=== PATIENT | male | born 1940 | race Caucasian/White ===

== ENCOUNTER 2019-07-05 03:47 | Observation (INO) | payer MEDICARE, OTHER ==
[2019-07-05] MEDS ORDERED: Sodium Chloride 0.9% 1,000 ML IV ONE (04:10)
[2019-07-05] MEDS ORDERED: Sodium Chloride 0.9% 10 ML Syringe FLUSH PRN (04:10)
--- NOTE | 2019-07-05 04:39 | EDM.PDOC ---
ED HPI GENERAL MEDICAL PROBLEM - General Chief Complaint: General Stated Complaint: weakness Time Seen by Provider: 07/05/19 04:20 Source of Information: Reports: Patient, Family ([id number]) History Limitations: Reports: No Limitations - History of Present Illness INITIAL COMMENTS - FREE TEXT/NARRATIVE: Patient presents from assisted living with general weakness. He says he just doesn't feel right. He denies any pain or injury. He denies focal weakness. He eats 3 full meals daily and drinks several cups of water daily. He takes medication for BP, BPH and constipation. No CHF or diabetes. At 2300 last night he was lying in bed and couldn't get up so he called the ambulance. They helped him out of bed but he didn't want to come in then. Patient has bone cancer for at least 15 years now[address] He saw Dr. Agosto 4 days ago and discussed the cancer might be worsening. - Related Data Allergies Allergy/AdvReac Type Severity Reaction Status Date / Time No Known Drug Allergies Allergy Cannot Verified 07/05/19 03:48 Remember ED ROS GENERAL - Review of Systems Review Of Systems: See Below Constitutional: Reports: Malaise (vague), Weakness. Denies: Fever (He isn't aware of any except that the EMS crew last night read 101.5 on him when they were out.), Chills, Decreased Appetite HEENT: Denies: Ear Pain, Throat Pain, Vision Change Respiratory: Denies: Shortness of Breath, Cough Cardiovascular: Denies: Chest Pain, Edema, Lightheadedness, Syncope Endocrine: Reports: Fatigue, Other (weakness) GI/Abdominal: Reports: Constipation (chronic, takes Miralax qod which works okay ). Denies: Abdominal Pain, Diarrhea, Nausea, Vomiting : Denies: Dysuria, Flank Pain Musculoskeletal: Reports: No Symptoms Skin: Reports: No Symptoms Neurological: Reports: Difficulty Walking (due to weakness), Weakness. Denies: Confusion, Dizziness, Seizure, Syncope Psychiatric: Denies: Agitation, Anxiety, Confusion Hematologic/Lymphatic: Reports: Anemia ED EXAM, GENERAL - Physical Exam Exam: See Below Exam Limited By: No Limitations General Appearance: Alert, WD/WN, No Apparent Distress Eye Exam: Bilateral Eye: EOMI, Normal Inspection, PERRL Ears: Normal External Exam, Hearing Grossly Normal Nose: Normal Inspection, No Blood Throat/Mouth: Normal Inspection, Normal Lips, Normal Voice, No Airway Compromise Head: Atraumatic, Normocephalic Neck: Normal Inspection, Supple, Non-Tender, Full Range of Motion Respiratory/Chest: No Respiratory Distress, Lungs Clear, Normal Breath Sounds, No Accessory Muscle Use Cardiovascular: Normal Peripheral Pulses, Regular Rate, Rhythm, No Edema, No Gallop, No JVD, No Murmur Peripheral Pulses: 2+: Carotid (L), Carotid (R), Radial (L), Radial (R), Posterior Tibial (L), Posterior Tibial (R) GI/Abdominal: Normal Bowel Sounds, Soft, Non-Tender, No Organomegaly, No Distention Back Exam: Normal Inspection, Full Range of Motion. No: CVA Tenderness (L), CVA Tenderness (R) Extremities: Normal Inspection, Non-Tender, No Pedal Edema Neurological: Alert, Oriented, Normal Cognition, No Motor/Sensory Deficits Psychiatric: Normal Mood, Flat Affect Skin Exam: Warm, Dry, Intact, Normal Color, No Rash Course - Vital Signs Last Recorded V/S: Last Vital Signs Temp 97.6 F 07/05/19 03:49 Pulse 85 07/05/19 03:49 Resp 20 07/05/19 03:49 BP 154/54 H 07/05/19 04:11 Pulse Ox 96 07/05/19 03:49 - Orders/Labs/Meds Orders: Active Orders 24 hr Category Date Time Status Peripheral IV Care [RC] . DIRECTED Care 07/05/19 04:10 Active CULTURE URINE [RM] Stat Lab 07/05/19 05:21 Ordered Sodium Chloride 0.9% [Saline Flush] Med 07/05/19 04:10 Active 10 ml FLUSH Q8HR PRN Peripheral IV Insertion Adult [OM.PC] Routine Oth 07/05/19 04:10 Ordered Medication Orders Sodium Chloride (Saline Flush) 10 ml FLUSH Q8HR PRN PRN Reason: keep vein open Last Admin: 07/05/19 04:19 Dose: 10 ml Labs: Laboratory Tests 07/05/19 07/05/19 07/05/19 Range/Units 04:06 04:06 04:06 WBC 2.79 L (5.00-10.00) 10^3/uL RBC 2.44 L (4.50-6.00) 10^6/uL Hgb 8.2 L (13.0-17.0) g/dL Hct 24.6 L (40.0-52.0) % MCV 100.8 H (82.0-92.0) fL MCH 33.6 H (27.0-31.0) pg MCHC 33.3 (32.0-36.0) g/dL RDW 15.7 H (11.5-14.5) % Plt Count 132 L (150-400) 10^3/uL MPV 9.9 (7.4-10.4) fL Immature Gran % (Auto) 1.8 (0.0-5.0) % Neut % (Auto) 54.4 (50.0-70.0) % Lymph % (Auto) 31.9 (20.0-40.0) % [place] % (Auto) 9.0 H (2.0-8.0) % Eos % (Auto) 2.5 (1.0-3.0) % Baso % (Auto) 0.4 (0.0-1.0) % Immature Gran # (Auto) 0.05 (0.00-0.50) 10^3/uL Neut # (Auto) 1.52 L (2.50-7.00) 10^3/uL Lymph # (Auto) 0.89 L (1.00-4.00) 10^3/uL [place] # (Auto) 0.25 (0.10-0.80) 10^3/uL Eos # (Auto) 0.07 L (0.10-0.30) 10^3/uL Baso # (Auto) 0.01 (0.00-0.10) 10^3/uL Sodium 140 (136-145) mmol/L Potassium 3.7 (3.3-5.3) mmol/L Chloride 104 (98-115) mmol/L Carbon Dioxide 24.4 (21.0-32.0) mmol/L Anion Gap 15.3 H (5-15) mmol/L BUN 22 (6-25) mg/dL Creatinine 1.92 H (0.51-1.17) mg/dL Est Cr Clr Drug Dosing 28.15 mL/min Estimated GFR (MDRD) 34 mL/min Glucose 107 H (75 - 99) mg/dL Lactic Acid 0.8 (0.4-2.0) mmol/L Calcium 8.5 L (8.7-10.3) mg/dL Total Bilirubin 0.4 (0.2-1.0) mg/dL AST 22 (15-37) U/L ALT 15 (12-78) U/L Alkaline Phosphatase 56 (46-116) IU/L Total Protein 9.0 H (6.4-8.2) g/dL Albumin 2.60 L (3.00-4.80) g/dL TSH, Ultra Sensitive (0.340-4.820) uIU/mL Specimen Type Urine Color (YELLOW) Urine Appearance (CLEAR) Urine pH (5.0-9.0) Ur Specific [place] (1.005-1.030) Urine Protein (NEGATIVE) mg/dL Urine Glucose (UA) (NEGATIVE) mg/dL Urine Ketones (NEGATIVE) mg/dL Urine Occult Blood (NEGATIVE) Urine Nitrite (NEGATIVE) Urine Bilirubin (NEGATIVE) Urine Urobilinogen (0.2-1.0) E.U./dL Ur Leukocyte Esterase (NEGATIVE) Urine RBC (0-5) /HPF Urine WBC (0-5) /HPF Ur Epithelial Cells /LPF Urine Bacteria (NONE TO FEW) /HPF Hyaline Casts (NEGATIVE) /LPF 07/05/19 07/05/19 Range/Units 04:06 04:20 WBC (5.00-10.00) 10^3/uL RBC (4.50-6.00) 10^6/uL Hgb (13.0-17.0) g/dL Hct (40.0-52.0) % MCV (82.0-92.0) fL MCH (27.0-31.0) pg MCHC (32.0-36.0) g/dL RDW (11.5-14.5) % Plt Count (150-400) 10^3/uL MPV (7.4-10.4) fL Immature Gran % (Auto) (0.0-5.0) % Neut % (Auto) (50.0-70.0) % Lymph % (Auto) (20.0-40.0) % [place] % (Auto) (2.0-8.0) % Eos % (Auto) (1.0-3.0) % Baso % (Auto) (0.0-1.0) % Immature Gran # (Auto) (0.00-0.50) 10^3/uL Neut # (Auto) (2.50-7.00) 10^3/uL Lymph # (Auto) (1.00-4.00) 10^3/uL [place] # (Auto) (0.10-0.80) 10^3/uL Eos # (Auto) (0.10-0.30) 10^3/uL Baso # (Auto) (0.00-0.10) 10^3/uL Sodium (136-145) mmol/L Potassium (3.3-5.3) mmol/L Chloride (98-115) mmol/L Carbon Dioxide (21.0-32.0) mmol/L Anion Gap (5-15) mmol/L BUN (6-25) mg/dL Creatinine (0.51-1.17) mg/dL Est Cr Clr Drug Dosing mL/min Estimated GFR (MDRD) mL/min Glucose (75 - 99) mg/dL Lactic Acid (0.4-2.0) mmol/L Calcium (8.7-10.3) mg/dL Total Bilirubin (0.2-1.0) mg/dL AST (15-37) U/L ALT (12-78) U/L Alkaline Phosphatase (46-116) IU/L Total Protein (6.4-8.2) g/dL Albumin (3.00-4.80) g/dL TSH, Ultra Sensitive 15.610 H (0.340-4.820) uIU/mL Specimen Type Urinvoid Urine Color Yellow (YELLOW) Urine Appearance Slightly cloudy H (CLEAR) Urine pH 7.0 (5.0-9.0) Ur Specific [place] 1.020 (1.005-1.030) Urine Protein 100 H (NEGATIVE) mg/dL Urine Glucose (UA) Negative (NEGATIVE) mg/dL Urine Ketones Negative (NEGATIVE) mg/dL Urine Occult Blood Negative (NEGATIVE) Urine Nitrite Negative (NEGATIVE) Urine Bilirubin Negative (NEGATIVE) Urine Urobilinogen 0.2 (0.2-1.0) E.U./dL Ur Leukocyte Esterase Small H (NEGATIVE) Urine RBC 0-5 (0-5) /HPF Urine WBC >100 H (0-5) /HPF Ur Epithelial Cells Few /LPF Urine Bacteria Few (NONE TO FEW) /HPF Hyaline Casts Few H (NEGATIVE) /LPF Meds: Medications Generic Name Dose Route Start Last Admin Trade Name Freq PRN Reason Stop Dose Admin Sodium Chloride 10 ml 07/05/19 04:10 07/05/19 04:19 Saline Flush FLUSH 10 ml Q8HR PRN Administration keep vein open Discontinued Medications Generic Name Dose Route Start Last Admin Trade Name Freq PRN Reason Stop Dose Admin Sodium Chloride 1,000 mls @ 999 mls/hr 07/05/19 04:10 07/05/19 04:19 Normal Saline IV 07/05/19 05:10 999 mls/hr .BOLUS ONE Administration - Re-Assessments/Exams Free Text/Narrative Re-Assessment/Exam: 07/05/19 06:21 UA shows mild UTI. WBC is 2.8, Hg 8.2 which are likely normal for patient with his bone cancer; he says he runs low blood counts. TSH is 15.6; patient isn't aware of any thyroid disease before and he has never been on thyroid medication. The kidney function indicates renal failure but not sure if acute or chronic; patient not aware of any kidney disease. I discussed findings with patient and then discussed case with Billy White who accepted for admission to observation. Patient given a liter of NS and Macrobid 100 mg po in ER. He is stable on admission. Departure - Departure Time of Disposition: 06:21 Disposition: Refer to Observation Condition: Fair Clinical Impression: General weakness Hypothyroid Qualifiers: Hypothyroidism type: unspecified Qualified Code(s): E03.9 - Hypothyroidism, unspecified UTI (urinary tract infection) Qualifiers: Urinary tract infection type: acute cystitis Hematuria presence: without hematuria Qualified Code(s): N30.00 - Acute cystitis without hematuria Bone cancer Qualifiers: Malignant neoplasm of bone location: unspecified location Qualified Code(s): C41.9 - Malignant neoplasm of bone and articular cartilage, unspecified Renal failure Qualifiers: Renal failure chronicity: unspecified chronicity Qualified Code(s): N19 - Unspecified kidney failure Anemia Qualifiers: Anemia type: unspecified type Qualified Code(s): D64.9 - Anemia, unspecified Fatigue Qualifiers: Encounter type: initial encounter - Discharge Information Forms: ED Department Discharge - My Orders Last 24 Hours: My Active Orders 07/05/19 04:10 Peripheral IV Care [RC] . DIRECTED Sodium Chloride 0.9% [Saline Flush] 10 ml FLUSH Q8HR PRN Peripheral IV Insertion Adult [OM.PC] Routine 07/05/19 05:21 CULTURE URINE [RM] Stat - Assessment/Plan Last 24 Hours: My Active Orders 07/05/19 04:10 Peripheral IV Care [RC] . DIRECTED Sodium Chloride 0.9% [Saline Flush] 10 ml FLUSH Q8HR PRN Peripheral IV Insertion Adult [OM.PC] Routine 07/05/19 05:21 CULTURE URINE [RM] Stat
[2019-07-05 04:53] LABS: ANION GAP 15.3 mmol/L (5-15)
[2019-07-05] MEDS ORDERED: Nitrofurantoin Monohydrate/Macrocrystalline 100 MG Cap PO ONE (06:14)
[2019-07-05] MEDS ORDERED: Acetaminophen 500 MG Tab PO PRN (11:12)
--- NOTE | 2019-07-05 11:29 | PCM.HP.2 ---
H&P History of Present Illness - General Date of Service: 07/05/19 Admit Problem/Dx: Admission Diagnosis/Problem Admission Diagnosis/Problem UTI (urinary tract infection) due to urinary indwelling catheter Source of Information: Patient, Old Records, Provider, RN History Limitations: Reports: No Limitations - Related Data Allergies/Adverse Reactions: Allergies Allergy/AdvReac Type Severity Reaction Status Date / Time No Known Drug Allergies Allergy Cannot Verified 07/05/19 03:48 Remember Home Medications: Home Meds Acetaminophen [Acetaminophen Extra Strength] 1,000 mg PO Q6H PRN 07/05/19 [ History] Acyclovir [Zovirax] 400 mg PO BID 07/05/19 [History] Ascorbate Calcium [Vitamin C] 500 mg PO DAILY 07/05/19 [History] Calcium Carbonate/Vitamin D3 [Caltrate-600 with Vit D Tab] 1 each PO DAILY 07/05 [History] Ferrous Sulfate [Feosol] 325 mg PO DAILY 07/05/19 [History] Finasteride [Proscar] 5 mg PO DAILY 07/05/19 [History] Flaxseed Oil [Flaxseed] 1,000 mg PO DAILY 07/05/19 [History] Fluticasone Propionate [Flonase Allergy Relief] 1 spray NS DAILY 07/05/19 [ History] Magnesium Oxide [Magnesium] 500 mg PO DAILY 07/05/19 [History] Meclizine [Antivert] 25 mg PO TID PRN 07/05/19 [History] Multivitamin with Minerals [Multiple Vitamin] 1 tab PO DAILY 07/05/19 [History] Omeprazole 20 mg PO 0800 07/05/19 [History] Plant Stanol Maggie [Cholest Off] 450 mg PO DAILY 07/05/19 [History] Sulfamethoxazole/Trimethoprim [Bactrim 400-80 MG] 2 each PO ASDIRECTED 07/05/19 [History] Tamsulosin HCl [Flomax] 0.8 mg PO BEDTIME 07/05/19 [History] Vitamin B Complex [B Complex] 1 each PO DAILY 07/05/19 [History] amLODIPine [Norvasc] 5 mg PO 0800 07/05/19 [History] Past Medical History HEENT History: Reports: Hard of Hearing, Impaired Vision Cardiovascular History: Reports: Hypertension Respiratory History: Reports: None Gastrointestinal History: Reports: GERD Genitourinary History: Reports: BPH Neurological History: Reports: Brain Injury, Concussion Psychiatric History: Reports: None Endocrine/Metabolic History: Reports: Obesity/BMI 30+ Hematologic History: Reports: None Immunologic History: Reports: None Oncologic (Cancer) History: Reports: Bone Dermatologic History: Reports: None - Infectious Disease History Infectious Disease History: Reports: None - Past Surgical History Cardiovascular Surgical History: Reports: None Respiratory Surgical History: Reports: None GI Surgical History: Reports: None Musculoskeletal Surgical History: Reports: Knee Replacement Dermatological Surgical History: Reports: None Social & Family History - Family History Family Medical History: Noncontributory - Tobacco Use Smoking Status *Q: Never Smoker - Caffeine Use Caffeine Use: Reports: Soda - Recreational Drug Use Recreational Drug Use: No H&P Review of Systems - Review of Systems: Review Of Systems: See Below General: Reports: Malaise. Denies: Fever, Chills, Decreased Appetite HEENT: Reports: No Symptoms Pulmonary: Reports: No Symptoms Cardiovascular: Reports: No Symptoms Gastrointestinal: Denies: Abdominal Pain, Constipation, Diarrhea Genitourinary: Reports: Frequency. Denies: Dysuria, Burning, Pain, Urgency, Retention Musculoskeletal: Reports: No Symptoms Skin: Reports: Pallor Psychiatric: Reports: Mood Lability. Denies: Confusion, Agitation Neurological: Reports: Difficulty Walking (uses walker). Denies: Confusion, Dizziness, Headache, Numbness Hematologic/Lymphatic: Reports: Anemia Immunologic: Reports: No Symptoms Exam - Exam Exam: See Below - Vital Signs Vital Signs: Last Vital Signs Temp 97.6 F 07/05/19 06:09 Pulse 88 07/05/19 06:09 Resp 20 07/05/19 06:09 BP 127/60 07/05/19 06:09 Pulse Ox 96 07/05/19 06:09 Weight: 229 lb 7 oz - Exam Quality Assessment: No: Supplemental Oxygen, DVT Prophylaxis General: Alert, Oriented, Cooperative. No: Mild Distress HEENT: Mucosa Moist & [place] Neck: Supple. No: Lymphadenopathy Lungs: Clear to Auscultation, Normal Respiratory Effort Cardiovascular: Regular Rate, Regular Rhythm, Normal S1, Normal S2 GI/Abdominal Exam: No: Distended (Male) Exam: Deferred Rectal (Males) Exam: Deferred Back Exam: No: CVA Tenderness (L), CVA Tenderness (R) Extremities: No Pedal Edema. No: Pedal Edema Peripheral Pulses: 2+: Radial (L), Radial (R) Skin: Warm, Dry, Intact Neurological: Cranial Nerves Intact, Normal Speech, Normal Tone, Sensation Intact Neuro Extensive - Mental Status: Alert, Oriented x3, Normal Mood/Affect, Normal Cognition Neuro Extensive - Motor, Sensory, Reflexes: CN II-XII Intact, Normal Gait, Normal Reflexes Psychiatric: Alert, Normal Affect, Labile Mood - Patient Data Lab Results Last 24 hrs: Laboratory Results - last 24 hr 07/05/19 07/05/19 07/05/19 Range/Units 04:06 04:06 04:06 WBC 2.79 L (5.00-10.00) 10^3/uL RBC 2.44 L (4.50-6.00) 10^6/uL Hgb 8.2 L (13.0-17.0) g/dL Hct 24.6 L (40.0-52.0) % MCV 100.8 H (82.0-92.0) fL MCH 33.6 H (27.0-31.0) pg MCHC 33.3 (32.0-36.0) g/dL RDW 15.7 H (11.5-14.5) % Plt Count 132 L (150-400) 10^3/uL MPV 9.9 (7.4-10.4) fL Immature Gran % (Auto) 1.8 (0.0-5.0) % Neut % (Auto) 54.4 (50.0-70.0) % Lymph % (Auto) 31.9 (20.0-40.0) % [place] % (Auto) 9.0 H (2.0-8.0) % Eos % (Auto) 2.5 (1.0-3.0) % Baso % (Auto) 0.4 (0.0-1.0) % Immature Gran # (Auto) 0.05 (0.00-0.50) 10^3/uL Neut # (Auto) 1.52 L (2.50-7.00) 10^3/uL Lymph # (Auto) 0.89 L (1.00-4.00) 10^3/uL [place] # (Auto) 0.25 (0.10-0.80) 10^3/uL Eos # (Auto) 0.07 L (0.10-0.30) 10^3/uL Baso # (Auto) 0.01 (0.00-0.10) 10^3/uL Sodium 140 (136-145) mmol/L Potassium 3.7 (3.3-5.3) mmol/L Chloride 104 (98-115) mmol/L Carbon Dioxide 24.4 (21.0-32.0) mmol/L Anion Gap 15.3 H (5-15) mmol/L BUN 22 (6-25) mg/dL Creatinine 1.92 H (0.51-1.17) mg/dL Est Cr Clr Drug Dosing 28.15 mL/min Estimated GFR (MDRD) 34 mL/min Glucose 107 H (75 - 99) mg/dL Lactic Acid 0.8 (0.4-2.0) mmol/L Calcium 8.5 L (8.7-10.3) mg/dL Total Bilirubin 0.4 (0.2-1.0) mg/dL AST 22 (15-37) U/L ALT 15 (12-78) U/L Alkaline Phosphatase 56 (46-116) IU/L Total Protein 9.0 H (6.4-8.2) g/dL Albumin 2.60 L (3.00-4.80) g/dL TSH, Ultra Sensitive (0.340-4.820) uIU/mL Specimen Type Urine Color (YELLOW) Urine Appearance (CLEAR) Urine pH (5.0-9.0) Ur Specific [place] (1.005-1.030) Urine Protein (NEGATIVE) mg/dL Urine Glucose (UA) (NEGATIVE) mg/dL Urine Ketones (NEGATIVE) mg/dL Urine Occult Blood (NEGATIVE) Urine Nitrite (NEGATIVE) Urine Bilirubin (NEGATIVE) Urine Urobilinogen (0.2-1.0) E.U./dL Ur Leukocyte Esterase (NEGATIVE) Urine RBC (0-5) /HPF Urine WBC (0-5) /HPF Ur Epithelial Cells /LPF Urine Bacteria (NONE TO FEW) /HPF Hyaline Casts (NEGATIVE) /LPF 07/05/19 07/05/19 Range/Units 04:06 04:20 WBC (5.00-10.00) 10^3/uL RBC (4.50-6.00) 10^6/uL Hgb (13.0-17.0) g/dL Hct (40.0-52.0) % MCV (82.0-92.0) fL MCH (27.0-31.0) pg MCHC (32.0-36.0) g/dL RDW (11.5-14.5) % Plt Count (150-400) 10^3/uL MPV (7.4-10.4) fL Immature Gran % (Auto) (0.0-5.0) % Neut % (Auto) (50.0-70.0) % Lymph % (Auto) (20.0-40.0) % [place] % (Auto) (2.0-8.0) % Eos % (Auto) (1.0-3.0) % Baso % (Auto) (0.0-1.0) % Immature Gran # (Auto) (0.00-0.50) 10^3/uL Neut # (Auto) (2.50-7.00) 10^3/uL Lymph # (Auto) (1.00-4.00) 10^3/uL [place] # (Auto) (0.10-0.80) 10^3/uL Eos # (Auto) (0.10-0.30) 10^3/uL Baso # (Auto) (0.00-0.10) 10^3/uL Sodium (136-145) mmol/L Potassium (3.3-5.3) mmol/L Chloride (98-115) mmol/L Carbon Dioxide (21.0-32.0) mmol/L Anion Gap (5-15) mmol/L BUN (6-25) mg/dL Creatinine (0.51-1.17) mg/dL Est Cr Clr Drug Dosing mL/min Estimated GFR (MDRD) mL/min Glucose (75 - 99) mg/dL Lactic Acid (0.4-2.0) mmol/L Calcium (8.7-10.3) mg/dL Total Bilirubin (0.2-1.0) mg/dL AST (15-37) U/L ALT (12-78) U/L Alkaline Phosphatase (46-116) IU/L Total Protein (6.4-8.2) g/dL Albumin (3.00-4.80) g/dL TSH, Ultra Sensitive 15.610 H (0.340-4.820) uIU/mL Specimen Type Urinvoid Urine Color Yellow (YELLOW) Urine Appearance Slightly cloudy H (CLEAR) Urine pH 7.0 (5.0-9.0) Ur Specific [place] 1.020 (1.005-1.030) Urine Protein 100 H (NEGATIVE) mg/dL Urine Glucose (UA) Negative (NEGATIVE) mg/dL Urine Ketones Negative (NEGATIVE) mg/dL Urine Occult Blood Negative (NEGATIVE) Urine Nitrite Negative (NEGATIVE) Urine Bilirubin Negative (NEGATIVE) Urine Urobilinogen 0.2 (0.2-1.0) E.U./dL Ur Leukocyte Esterase Small H (NEGATIVE) Urine RBC 0-5 (0-5) /HPF Urine WBC >100 H (0-5) /HPF Ur Epithelial Cells Few /LPF Urine Bacteria Few (NONE TO FEW) /HPF Hyaline Casts Few H (NEGATIVE) /LPF Result Diagrams: 07/05/19 04:06 07/05/19 04:06 Problem List Initiated/Reviewed/Updated: Yes Orders Last 24hrs: Active Orders 24 hr Category Date Time Status Up With Assistance [RC] ASDIRECTED Care 07/05/19 06:40 Active Vital Signs [RC] 0300,0700,1100,1500,1900,2300 Care 07/05/19 06:40 Active Regular Diet [DIET] Diet 07/05/19 Breakfast Active CULTURE URINE [RM] Stat Lab 07/05/19 04:20 Received Assessment/Plan Comment:: history of present illness Patient is a 69-year-old patient admitted into OBS status early this am from the ED 2/2 weakness. Patient is a resident of local [facility] had a hard time getting out of his hospitalize bed late last night in which used life alert for assistance, refusing transfer to the ED however family got involved necessitating ED arrival. Patient does have multiple myeloma with subsequent olvera CA and the family is in the planning stages of placing him in LTC in [place]. pertinent ED finding/workup White count 2.8 Electrolytes normal Creatinine 1.92, BUN 22 TSH 15.6 UA slightly cloudy, small leukocyte esterase, WBC >100 with few bacteria, few hyaline casts Primary hospital problems --Generalize weakness, ~baseline --Asymptomatic bacteriuria, discontinue antibiotics, await culture results --hypothyroidism 15.6, assess Ft4 today given weaknes --Multiple myelom/Pancytopenia, --CKD, stage 3 creat above baseline --Anemia HILDA/chronic dz. --Fall risk Chronic problems --BPH with recent LUTS, PSA 0.23, on flomax and finasteride, Post void bladder scan since slightly elevated creatinine --Hyperlipidemia --Hypertension --Parkinson's --Obesity --Iron deficiency anemia, --Osteoarthrosis --Chronic rhinitis disposition overall plan --Will observe in obs status however very minimal criteria given patient hx and good condition, could be DC this afternoon however most definitively by a.m. --assessment T4 levels giving his weakness status --Obtain post void bladder scan since slightly elevated creatinine --Assess code status and there is POLST on file --DC abx - Mortality Measure Prognosis:: Good
[2019-07-05] MEDS ORDERED: Tamsulosin 0.4 MG Cap.ER PO SCH (21:00)
[2019-07-05] MEDS: Acyclovir 400 MG Tab PO SCH (21:28)
[2019-07-06] MEDS ORDERED: amLODIPine 5 MG Tab PO SCH (08:00)
[2019-07-06] MEDS ORDERED: Omeprazole 20 MG Cap.CR PO SCH (08:00)
[2019-07-06] MEDS: Acyclovir 400 MG Tab PO SCH (08:32)
[2019-07-06] MEDS ORDERED: Magnesium Oxide 500 MG Tab PO SCH (09:00)
[2019-07-06] MEDS ORDERED: Fluticasone Propionate Nasal Spray 16 GM Bottle NAS SCH (09:00)
[2019-07-06] MEDS ORDERED: Finasteride 5 MG Tab PO SCH (09:00)
--- NOTE | 2019-07-06 10:20 | PCM.DCSUM1 ---
Discharge Summary - Hospital Course Diagnosis: Stroke: No - Discharge Data Discharge Date: 07/06/19 Discharge Disposition: Home, Self-Care 01 Condition: Good - Referral to Home Health Primary Care Physician: Irma Agosto MD - Patient Instructions Diet: Usual Diet as Tolerated Activity: As Tolerated Showering/Bathing: May Shower - Discharge Plan *PRESCRIPTION DRUG MONITORING PROGRAM REVIEWED*: Not Applicable *COPY OF PRESCRIPTION DRUG MONITORING REPORT IN PATIENT KAYDEN: Not Applicable Prescriptions/Med Rec: Levothyroxine [Synthroid] 50 mcg PO ACBREAKFAST #80 tab Home Medications: Home Meds Acetaminophen [Acetaminophen Extra Strength] 1,000 mg PO Q6H PRN 07/05/19 [ History] Acyclovir [Zovirax] 400 mg PO BID 07/05/19 [History] Ascorbate Calcium [Vitamin C] 500 mg PO DAILY 07/05/19 [History] Calcium Carbonate/Vitamin D3 [Caltrate 600 Plus D3 Tablet] 1 each PO BID [History] Ferrous Sulfate [Feosol] 325 mg PO DAILY 07/05/19 [History] Finasteride [Proscar] 5 mg PO DAILY 07/05/19 [History] Flaxseed Oil [Flaxseed] 1,000 mg PO DAILY 07/05/19 [History] Fluticasone Propionate [Flonase Allergy Relief] 1 spray NASBOTH DAILY 07/05/19 [ History] Magnesium Oxide [Magnesium] 500 mg PO DAILY 07/05/19 [History] Meclizine [Antivert] 25 mg PO TID PRN 07/05/19 [History] Multivitamin with Minerals [Multiple Vitamin] 1 tab PO DAILY 07/05/19 [History] Omeprazole 20 mg PO 0800 07/05/19 [History] Plant Stanol Maggie [Cholest Off] 450 mg PO DAILY 07/05/19 [History] Sulfamethoxazole/Trimethoprim [Bactrim 400-80 MG] 2 each PO ASDIRECTED 07/05/19 [History] Tamsulosin HCl [Flomax] 0.8 mg PO BEDTIME 07/05/19 [History] Vitamin B Complex [B Complex] 1 each PO DAILY 07/05/19 [History] amLODIPine [Norvasc] 5 mg PO 0800 07/05/19 [History] Levothyroxine [Synthroid] 50 mcg PO ACBREAKFAST #80 tab 07/06/19 [Rx] Referrals: Irma Agosto MD [Primary Care Provider] - (Anytime next week) - Discharge Summary/Plan Comment DC Time >30 min.: Yes Discharge Summary/Plan Comment: Final diagnosis Hypothyroidism, new onset Asymptomatic bacteriuria, UA culture upon discharge: mixed mercedes suggested of contamination Generalize weakness, ~baseline Multiple myeloma/Pancytopenia, CKD, stage 3 creat above baseline Fall risk Chronic problems --BPH with recent LUTS, PSA 0.23, on flomax and finasteride, Post void bladder scan 0 mL, --Anemia HILDA/chronic dz. --Hyperlipidemia --Hypertension --Parkinson's --Obesity --Iron deficiency anemia, --Osteoarthrosis --Chronic rhinitis ED/Hospital Summary/course 69-year-old patient admitted into OBS status early interventionist hours from the ED 2/ 2 weakness. Patient resides alone in local [facility] had a hard time getting out of his hospitalize bed late that night in which he used his life alert for assistance, refusing transfer to the ED however family got involved necessitating ED arrival. 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 pertinent ED finding/workup White count 2.8 Electrolytes normal Creatinine 1.92, BUN 22 TSH 15.6 UA slightly cloudy, small leukocyte esterase, WBC >100 with few bacteria, few hyaline casts Patients hospital course went well, patient had no side effects or adverse reactions to medications and/or treatments. He had no fever, no physical signs of systemic urinary tract infection however he was given a dose of Macrobid early on admission however this was discontinued due to lack of physical symptoms suggested of a systemic infection. He did continue on his Bactrim every other day prophylactically. TSH 15.6 with a free T4 of 0.46. He was started on levothyroxine. His creatinine was above baseline on admission, post void bladder scan showed 0 mL. UA culture mixed mercedes suggested of contamination Medication changes/adjustments upon discharge Levothyroxine/Synthroid, 50 g by mouth daily,(newly onset/added) Continue with Bactrim DS as previously prescribed (qMWF) Disposition/follow-up A follow-up appointment with Dr. Ean blake Patient written/verbal instructions included Report fevers, urinary obstruction, flank pain, vomiting, chills diaphoresis or worsening weakness - General Info Functional Status: Reports: Pain Controlled - Review of Systems General: Denies: Weakness, Fatigue HEENT: Reports: No Symptoms Pulmonary: Reports: No Symptoms Cardiovascular: Reports: No Symptoms Genitourinary: Reports: Frequency (Chronic urinary frequency voids approximately 100 mL per void). Denies: Retention Musculoskeletal: Reports: No Symptoms Skin: Reports: Pallor Neurological: Denies: Confusion Psychiatric: Reports: Mood Lability. Denies: Confusion, Agitation - Patient Data Vitals - Most Recent: Last Vital Signs Temp 98.5 F 07/06/19 06:52 Pulse 97 07/06/19 06:52 Resp 20 07/06/19 06:52 BP 111/64 07/06/19 08:32 Pulse Ox 95 07/06/19 06:52 Weight - Most Recent: 229 lb 7 oz I&O - Last 24 hours: Intake & Output 07/05/19 07/06/19 07/06/19 22:59 06:59 14:59 Intake Total 670 150 Output Total 700 600 Balance -30 -450 Lab Results - Last 24 hrs: Laboratory Results - last 24 hr 07/05/19 Range/Units 07:00 Free T4 0.46 L (0.59-1.17) ng/dL Med Orders - Current: Current Medications Acetaminophen (Tylenol Extra Strength) 1,000 mg PO Q6H PRN PRN Reason: Pain Acyclovir (Zovirax) 400 mg PO BID [facility] Last Admin: 07/06/19 08:32 Dose: 400 mg Amlodipine Besylate (Norvasc) 5 mg PO DAILY@0800 [facility] Last Admin: 07/06/19 08:32 Dose: 5 mg Finasteride (Proscar) 5 mg PO DAILY [facility] Last Admin: 07/06/19 08:32 Dose: 5 mg Fluticasone Propionate (Flonase) 0 gm SANAM DAILY [facility] Last Admin: 07/06/19 08:32 Dose: Not Given Magnesium Oxide (Magnesium Oxide) 500 mg PO DAILY [facility] Last Admin: 07/06/19 08:32 Dose: 500 mg Omeprazole (Omeprazole) 20 mg PO DAILY@0800 [facility] Last Admin: 07/06/19 08:32 Dose: 20 mg Tamsulosin HCl (Flomax) 0.8 mg PO BEDTIME [facility] Last Admin: 07/05/19 21:28 Dose: 0.8 mg Discontinued Medications Sodium Chloride (Normal Saline) 1,000 mls @ 999 mls/hr IV .BOLUS ONE Stop: 07/05/19 05:10 Last Admin: 07/05/19 04:19 Dose: 999 mls/hr Nitrofurantoin Macrocrystals (Macrobid) 100 mg PO ONETIME ONE Stop: 07/05/19 06:15 Last Admin: 07/05/19 06:23 Dose: 100 mg Sodium Chloride (Saline Flush) 10 ml FLUSH Q8HR PRN PRN Reason: keep vein open Last Admin: 07/05/19 04:19 Dose: 10 ml - Exam Quality Assessment: Denies: Supplemental Oxygen General: Reports: Alert, Oriented Neck: Reports: Supple Lungs: Reports: Clear to Auscultation, Normal Respiratory Effort Cardiovascular: Reports: Regular Rate, Regular Rhythm GI/Abdominal Exam: Soft (Male) Exam: Deferred Rectal (Males) Exam: Deferred, BPH (Per history) Back Exam: Denies: CVA Tenderness (L), CVA Tenderness (R) Skin: Reports: Warm, Dry, Intact Psy/Mental Status: Reports: Labile Mood. Denies: Depressed, Agitated
== END 2019-07-06 10:20 | disposition home or self-care (01) ==
LOC: KA.ED 03:47 → KA.MS 06:17
PROVIDERS: ADMIT Family Medicine; ATTEND Family Medicine
DX: R53.1 Weakness (principal); E03.9 Hypothyroidism, unspecified; R82.71 Bacteriuria; C90.00 Multiple myeloma not having achieved remission; D61.818 Other pancytopenia; N18.3 Chronic kidney disease, stage 3 (moderate); N40.1 Benign prostatic hyperplasia with lower urinary tract symptoms; D50.9 Iron deficiency anemia, unspecified; E78.5 Hyperlipidemia, unspecified; I12.9 Hypertensive chronic kidney disease with stage 1 through stage 4 chronic kidney disease, or unspecified chronic kidney disease; G20 Parkinson's disease; E66.9 Obesity, unspecified; M19.90 Unspecified osteoarthritis, unspecified site; J31.0 Chronic rhinitis; K21.9 Gastro-esophageal reflux disease without esophagitis; Z91.81 History of falling; Z79.899 Other long term (current) drug therapy; Z68.37 Body mass index [BMI] 37.0-37.9, adult
CPT/HCPCS: 51798; 80053; 81001; 83605; 84439; 84443; 85025; 87086; 96360; 99284; 99285; A9270; G0378; J7030